=== PATIENT | male | born 1965 | race Caucasian/White ===

== ENCOUNTER 2017-11-01 08:53 | Emergency (ER) | payer BC ==
[2017-11-01] MEDS ORDERED: ONDANSETRON 4 MG/2 ML VIAL IVP ONE (08:57)
[2017-11-01] MEDS ORDERED: NS 1,000 ML IV ONE ×2 (08:57→09:37)
--- NOTE | 2017-11-01 08:57 | EDPHY ---
H & P Time Seen by Provider: 11/01/17 08:53 HPI/ROS: CHIEF COMPLAINT: Nausea vomiting diarrhea HISTORY OF PRESENT ILLNESS: History of diabetes and lung cancer, visiting from [place]. Picked up by EMS at his hotel with nausea vomiting diarrhea since 3: 00 a.m.. Symptoms severe, associated with some darker stool. Symptoms severe. Associated with dizziness and lightheadedness but not vertigo. Noted to be tachycardic by EMS. Noted to be very active yesterday, walked a lot in the heat. Here with his family. Did try to drink a lot of water. REVIEW OF SYSTEMS: Eye: no change in vision ENT: no sore throat Cardiac: no chest pain or syncope Pulmonary: A little bit shortness of breath after the vomiting, not coughing Abdomen: HPI Musculoskeletal: no back pain Skin: no rash Neuro: no headache Constitutional: no fever : no urinary symptoms A comprehensive 10 point review of systems is otherwise negative aside from elements mentioned in the history of present illness. PAST MEDICAL HISTORY: Stage IV lung cancer and type 2 diabetes. Left adrenalectomy for metastatic cancer. 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 General Appearance: Alert and conversant, cooperative. Eyes: No scleral icterus. ENT, Mouth: Normal mucous membranes. Respiratory: Normal respiratory effort, breath sounds equal, lungs are clear to auscultation. Speaks in full sentences. Cardiovascular: Regular rate and rhythm. Gastrointestinal: Abdomen is soft and non tender. Rectal exam shows brown stool sent for Hemoccult. Neurological: Alert, face symmetric, normal motor and sensory in extremities. Skin: Warm and dry, no rashes. Musculoskeletal: No peripheral edema. Psychiatric: Not agitated. Emergency Department course/MDM: Zofran 4 mg IV, normal saline 1 L IV. Pre-hospital glucose approximately 150. Fecal occult blood sent. 937: Labs reviewed including normal electrolytes, 2nd L IV normal saline for vomiting diarrhea and dehydration. Results discussed with patient, liver function tests normal although he says that they have been running in the 300s previously. Symptomatic treatment, IV hydration, if is improved will plan to discharge with Zofran prescription. At this point I think acute GI bleed is unlikely. Ketoacidosis also unlikely. Treated with IV fluids, feels better, stable for discharge. Constitutional: Initial Vital Signs Temperature (C) 37.0 C 11/01/17 09:03 Heart Rate 99 11/01/17 09:03 Respiratory Rate 18 11/01/17 09:03 Blood Pressure 135/101 H 11/01/17 09:03 O2 Sat (%) 90 L 11/01/17 09:03 O2 Delivery Mode Room Air O2 (L/minute) 2 Allergies/Adverse Reactions: meperidine [From Demerol] Allergy (Verified 11/01/17 09:01) Home Medications: Medication Instructions Recorded Alectinib HCl 11/01/17 Insulin Regular Human 11/01/17 Ondansetron Odt [Zofran Odt] 4 mg PO Q4PRN #6 tab 11/01/17 Prozac 10 MG (*) 11/01/17 Wellbutrin Sr 11/01/17 Medical Decision Making - Diagnostics EKG Interpretation: 12-lead EKG interpreted by me; official reading is in trace master. My interpretation is sinus tachycardia 103 with left atrial abnormality, inferior T -wave inversions noted. Differential Diagnosis: Differential considered including but not limited to food poisoning, GI bleed, gastroenteritis, bowel obstruction - Data Points Laboratory Results: Laboratory Results 11/01/17 09:00 11/01/17 09:00 11/01/17 11/01/17 11/01/17 09:00 09:00 09:00 WBC 11.54 10^3/uL H 10^3/uL (3.80-9.50) RBC 5.04 10^6/uL 10^6/uL (4.40-6.38) Hgb 14.5 g/dL g/dL (13.7-17.5) Hct 41.9 % % (40.0-51.0) MCV 83.1 fL fL (81.5-99.8) MCH 28.8 pg pg (27.9-34.1) MCHC 34.6 g/dL g/dL (32.4-36.7) RDW 14.7 % % (11.5-15.2) Plt Count 317 10^3/uL 10^3/uL (150-400) MPV 10.8 fL fL (8.7-11.7) Neut % (Auto) Not Reported Lymph % (Auto) Not Reported [place] % (Auto) Not Reported Eos % (Auto) Not Reported Baso % (Auto) Not Reported Nucleat RBC Rel Count Not Reported Absolute Neuts (auto) Not Reported Absolute Lymphs (auto) Not Reported Absolute Monos (auto) Not Reported Absolute Eos (auto) Not Reported Absolute Basos (auto) Not Reported Absolute Nucleated RBC Not Reported Immature Gran % Not Reported Seg Neutrophils % 92.0 % % Band Neutrophils % 0 % % Lymphocytes % 5.0 % % Monocytes % 3.0 % % Eosinophils % 0 % % Basophils % 0 % % Metamyelocytes % 0 % % Myelocytes % 0 % % Promyelocytes % 0 % % Blast Cells % 0 % % Immature Gran # Not Reported Absolute Seg Neuts 10.62 10^/uL H 10^/uL (1.70-6.50) Absolute Band Neuts 0.00 10^3/uL 10^3/uL (0.00-0.70) Absolute Lymphocytes 0.58 10^3/uL L 10^3/uL (1.00-3.00) Absolute Monocytes 0.35 10^3/uL 10^3/uL (0.30-0.80) Absolute Eosinophils 0.00 10^3/uL L 10^3/uL (0.03-0.40) Absolute Basophils 0.00 10^3/uL L 10^3/uL (0.02-0.10) Absolute Metamyelocyte 0.00 10^3/mL 10^3/mL (0.00-0.00) Absolute Myelocytes 0.00 10^3/mL 10^3/mL (0.00-0.00) Absolute Promyelocytes 0.00 10^3/uL 10^3/uL (0.00-0.00) Absolute Plasma Cells 0.00 10^3/uL 10^3/uL (0.00-0.00) Nucleated RBCs 0 /100 WBC /100 WBC (0-0) Absolute Blast Cells 0.00 10^3/uL 10^3/uL (0.00-0.00) Plasma Cells % 0 % % Platelet Estimate ADEQUATE (ADEQ) Microcytic Cells 1+ H Echinocytes 1+ H Sodium 137 mEq/L mEq/L (135-145) Potassium 4.1 mEq/L mEq/L (3.3-5.0) Chloride 102 mEq/L mEq/L (97-110) Carbon Dioxide 25 mEq/l mEq/l (22-31) Anion Gap 10 mEq/L mEq/L (8-16) BUN 24 mg/dL H mg/dL (7-23) Creatinine 1.0 mg/dL mg/dL (0.7-1.3) Estimated GFR > 60 Glucose 154 mg/dL H mg/dL (70-100) Calcium 8.9 mg/dL mg/dL (8.5-10.4) Total Bilirubin 1.4 mg/dL mg/dL (0.1-1.4) Conjugated Bilirubin 0.4 mg/dL mg/dL (0.0-0.5) Unconjugated Bilirubin 1.0 mg/dL mg/dL (0.0-1.1) AST 43 IU/L IU/L (17-59) ALT 72 IU/L IU/L (21-72) Alkaline Phosphatase 107 IU/L IU/L (38-126) Total Protein 7.1 g/dL g/dL (6.3-8.2) Albumin 4.1 g/dL g/dL (3.5-5.0) Lipase 71 IU/L IU/L (23-300) Stool Occult Bld Scrn NEGATIVE (NEGATIVE) Medications Given: Discontinued Medications Sodium Chloride (Ns) 1,000 mls @ 0 mls/hr IV EDNOW ONE; Wide Open PRN Reason: Protocol Stop: 11/01/17 08:58 Last Admin: 11/01/17 09:12 Dose: 1,000 mls Sodium Chloride (Ns) 1,000 mls @ 0 mls/hr IV EDNOW ONE; Wide Open PRN Reason: Protocol Stop: 11/01/17 09:38 Last Admin: 11/01/17 09:42 Dose: 1,000 mls Ondansetron HCl (Zofran) 4 mg IVP EDNOW ONE Stop: 11/01/17 08:58 Last Admin: 11/01/17 09:12 Dose: 4 mg Departure - Departure Disposition: Home, Routine, Self-Care Clinical Impression: Dehydration, Vomiting and diarrhea Condition: Good Instructions: Ondansetron (By mouth), Acute Nausea and Vomiting (ED), Acute Diarrhea (ED) Referrals: Lori Gudino MD [[facility] [place] Primary Care Provider] - As per Instructions (we always give ED patients a primary care referral) Prescriptions: Ondansetron Odt [Zofran Odt] 4 mg PO Q4PRN #6 tab
--- NOTE | 2017-11-01 09:07 | CPEKG ---
Heart Rate: 103 RR Interval: 583 P-R Interval: 160 QRSD Interval: 90 QT Interval: 344 QTC Interval: 451 P [place]: 25 QRS [place]: 5 T Wave [place]: -8 EKG Severity - BORDERLINE ECG - EKG Impression: SINUS TACHYCARDIA EKG Impression: PROBABLE LEFT ATRIAL ABNORMALITY EKG Impression: BORDERLINE T ABNORMALITIES, INFERIOR LEADS Electronically Signed By: Clarence Pickard 01-Nov-2017 09:19:09
[2017-11-01 09:24] LABS: PLATELET COUNT 317 10^3/uL (150-400)
[2017-11-01 12:02] VITALS: BP 119/77
== END 2017-11-01 12:01 | disposition home or self-care (01) ==
DX: R11.10 Vomiting, unspecified (principal); E86.0 Dehydration; R19.7 Diarrhea, unspecified; E11.9 Type 2 diabetes mellitus without complications; E86.9 Volume depletion, unspecified; Z79.4 Long term (current) use of insulin; Z85.118 Personal history of other malignant neoplasm of bronchus and lung
CPT/HCPCS: 96374; J2405